=== PATIENT | male | born 1990 | race Two or more races ===

== ENCOUNTER 2019-11-26 08:47 | Day surgery (SDC) | payer OTHER ==
[~2019-11-26] VITALS: Ht 167.6 cm; Wt 56.7 kg
[2019-11-26 09:43] VITALS: BP 109/74; Ht 167.6 cm; Wt 56.7 kg
[2019-11-26] MEDS ORDERED: HYDROCODON-ACE1 EA10 PO (13:21)
--- NOTE | 2019-11-26 14:51 | NUR ---
PT DC INSTRUCTIONS REVIEWED AT THIS TIME. PT AND FAMILY VERBALIZE UNDERSTANDING. PT IV REMOVED AT THIS TIME, INTACT, NO REDNESS OR SWELLING NOTED AT SITE. IV SITE DRESSED WITH GAUZE AND BANDIAD.
--- NOTE | 2019-11-26 14:55 | NUR ---
PT LEAVING OPS AT THIS TIME VIA WC, NAD NOTED.
--- NOTE | 2019-12-01 11:34 | OP ---
PATIENT NAME: THERESA BOYLE MEDICAL RECORD: [id number] :89 LOCATION:D.OPS ADMISSION DATE: SURGEON: CLOVIS LONG MD DATE OF OPERATION: 11/26/2019 PREOPERATIVE DIAGNOSIS: Painful hardware of the left femur. POSTOPERATIVE DIAGNOSIS: Painful hardware of the left femur. PROCEDURE: Removal of painful hardware of the left femur. SURGEON: Clovis Long MD SIZER MACHINE: ELADIO Urrutai INTRAOPERATIVE COMPLICATIONS: None. SUMMARY OF PATHOLOGIC FINDINGS: As previously noted by radiographs, the patient had 2 distal locking screws from a femoral felix placed at [facility] in [place] 10 years ago. The screw heads were prominent, had been bothering him for quite some time, mostly on the medial side. After discussion of the risks, hazards and benefits, the patient agreed and wished to have these 2 screws removed as I told that removal of the femoral nail will be a much bigger task and I did not think that was his symptomatology basis. OPERATIVE SUMMARY IN DETAIL: After obtaining the appropriate preoperative orthopedic surgery consent as well as anesthetic consultation, evaluation and clearance the patient was brought to the operating room and placed on the operating table in supine position. After adequate general laryngeal mask airway was administered, the patient's left lower extremity was prepared with tourniquet about the proximal aspect. Left lower extremity was then prepped and draped in routine sterile fashion. The leg was elevated and exsanguinated, tourniquet was inflated to 350 mmHg. Routine timeout was taken and agreed upon by all given the patient's unique identifiers under fluoroscopic guidance and decision was made to take out both of the screws. Dissection was carried down and the screw heads were identified. Small portions of bone were taken from around the screw base as this was a 10-year-old implant. At this point, the screw was put into place and the screws were both removed with some degree of trepidation how they were removed in their entirety. At this point, final radiographs were taken and submitted for radiologist review. Wounds were irrigated and closed including the IT band closure as well as the skin and subcutaneous tissue done by ELADIO Urrutia. Sterile dressings were applied. The patient was awakened and taken to recovery room in stable condition. All final needle and sponge counts were correct. 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
== END 2019-11-26 14:56 | disposition home or self-care (01) ==
LOC: D.OPS 08:47 → D.PAN 11:15 → D.OPS 12:15
PROVIDERS: ATTEND Orthopaedic Surgery
DX: T84.84XA Pain due to internal orthopedic prosthetic devices, implants and grafts, initial encounter (principal); M25.561 Pain in right knee